=== PATIENT | male | born 2000 | race African-American/Black ===

== ENCOUNTER 2022-05-01 21:22 | Emergency (ER) | payer OTHER ==
[~2022-05-01] VITALS: Ht 172.7 cm; Wt 67.0 kg
[2022-05-01 21:47] VITALS: BP 134/74
[2022-05-01] MEDS ORDERED: PENICILLIN G BENZATHINE 2,400,000 UNITS/4ML SYR IM ONE (23:30)
== END 2022-05-02 00:07 | disposition home or self-care (01) ==
LOC: ER 21:22
DX: N48.89 Other specified disorders of penis (principal)
CPT/HCPCS: 96372; 99283; J0561